=== PATIENT | male | born 1955 | race Two or more races ===

== ENCOUNTER 2019-10-01 14:21 | Outpatient (CLI) | payer OTHER ==
[~2019-10-01 14:21] MED LIST: NABUMETONE500 MG PO; PERCOCET 5/3251 TAB PO
== END 2019-10-01 14:33 | disposition home or self-care (01) ==
LOC: LAB 14:21
PROVIDERS: ATTEND Internal Medicine Hematology & Oncology
DX: D50.8 Other iron deficiency anemias (principal); I10 Essential (primary) hypertension; D55.0 Anemia due to glucose-6-phosphate dehydrogenase [G6PD] deficiency; D51.1 Vitamin B12 deficiency anemia due to selective vitamin B12 malabsorption with proteinuria; D51.0 Vitamin B12 deficiency anemia due to intrinsic factor deficiency; D63.1 Anemia in chronic kidney disease; E03.8 Other specified hypothyroidism; E06.3 Autoimmune thyroiditis; R97.0 Elevated carcinoembryonic antigen [CEA]; R97.8 Other abnormal tumor markers

== ENCOUNTER 2019-10-17 07:12 | Outpatient (CLI) | payer OTHER | END 2019-10-17 07:19 | disposition home or self-care (01) | LOC: SONOGRAMA 07:12 → MAMO-SONO 07:15 → SONOGRAMA 07:19 | PROVIDERS: ATTEND Internal Medicine Hematology & Oncology | DX: D50.8 Other iron deficiency anemias (principal); D51.3 Other dietary vitamin B12 deficiency anemia; R19.5 Other fecal abnormalities; E89.0 Postprocedural hypothyroidism; I10 Essential (primary) hypertension ==

== ENCOUNTER 2019-11-19 06:50 | Outpatient (CLI) | payer OTHER | END 2019-11-19 06:59 | disposition home or self-care (01) | LOC: LAB 06:50 | PROVIDERS: ATTEND Internal Medicine Hematology & Oncology | DX: D50.8 Other iron deficiency anemias (principal); I10 Essential (primary) hypertension; R97.0 Elevated carcinoembryonic antigen [CEA]; R97.8 Other abnormal tumor markers; D51.3 Other dietary vitamin B12 deficiency anemia; K90.89 Other intestinal malabsorption; E89.0 Postprocedural hypothyroidism; D64.89 Other specified anemias ==

== ENCOUNTER 2020-06-10 14:05 | Emergency (ER) | payer OTHER ==
[~2020-06-10] VITALS: Ht 177.8 cm; Wt 76.7 kg
[2020-06-10] MEDS ORDERED: SYNTHROID200 MCG (14:45)
[2020-06-10] MEDS ORDERED: ZESTRIL40 M1 (14:45)
[2020-06-10] MEDS ORDERED: RESTORIL15 M1 (14:46)
== END 2020-06-10 20:43 | disposition home or self-care (01) ==
LOC: ER 14:05
DX: G44.89 Other headache syndrome (principal)

== ENCOUNTER → 2021-01-06 08:59 | Outpatient (CLI) | payer OTHER ==
[~2021-01-06 08:59] MED LIST changes: +RESTORIL15 M1; +SYNTHROID200 MCG; +ZESTRIL40 M1
== END | disposition home or self-care (01) ==
LOC: LAB 08:59
PROVIDERS: ATTEND Internal Medicine Hematology & Oncology
DX: D50.8 Other iron deficiency anemias (principal); I10 Essential (primary) hypertension; R74.02 Elevation of levels of lactic acid dehydrogenase [LDH]; K76.89 Other specified diseases of liver; D51.8 Other vitamin B12 deficiency anemias; D51.1 Vitamin B12 deficiency anemia due to selective vitamin B12 malabsorption with proteinuria; D51.0 Vitamin B12 deficiency anemia due to intrinsic factor deficiency; E03.8 Other specified hypothyroidism; E06.3 Autoimmune thyroiditis; R97.0 Elevated carcinoembryonic antigen [CEA]; R97.8 Other abnormal tumor markers; R97.20 Elevated prostate specific antigen [PSA]; D51.3 Other dietary vitamin B12 deficiency anemia; K90.0 Celiac disease; K90.89 Other intestinal malabsorption; R19.5 Other fecal abnormalities; E55.9 Vitamin D deficiency, unspecified; E78.49 Other hyperlipidemia; E11.65 Type 2 diabetes mellitus with hyperglycemia

== ENCOUNTER 2021-04-17 07:18 | Outpatient (CLI) | payer OTHER | END 2021-04-17 18:00 | disposition home or self-care (01) | LOC: LAB 07:18 | PROVIDERS: ATTEND Internal Medicine Hematology & Oncology | DX: D50.8 Other iron deficiency anemias (principal); R79.89 Other specified abnormal findings of blood chemistry; I10 Essential (primary) hypertension; R74.02 Elevation of levels of lactic acid dehydrogenase [LDH]; K76.89 Other specified diseases of liver; R97.0 Elevated carcinoembryonic antigen [CEA]; R97.8 Other abnormal tumor markers; D51.3 Other dietary vitamin B12 deficiency anemia; K90.0 Celiac disease; D51.1 Vitamin B12 deficiency anemia due to selective vitamin B12 malabsorption with proteinuria; E89.0 Postprocedural hypothyroidism; K90.89 Other intestinal malabsorption; R19.5 Other fecal abnormalities ==

== ENCOUNTER 2021-04-21 09:56 | Outpatient (CLI) | payer OTHER | END 2021-04-21 10:10 | disposition home or self-care (01) | LOC: SONOGRAMA 09:56 | PROVIDERS: ATTEND Internal Medicine | DX: E04.8 Other specified nontoxic goiter (principal) ==

== ENCOUNTER 2021-08-04 07:34 | Outpatient (CLI) | payer OTHER | END 2021-08-04 07:35 | disposition home or self-care (01) | LOC: SONOGRAMA 07:34 | PROVIDERS: ATTEND Internal Medicine Gastroenterology | DX: R10.9 Unspecified abdominal pain (principal) ==

== ENCOUNTER 2021-11-04 07:13 | Outpatient (CLI) | payer OTHER | END 2021-11-04 07:17 | disposition home or self-care (01) | LOC: TOM 07:13 | PROVIDERS: ATTEND Internal Medicine Hematology & Oncology | DX: D50.8 Other iron deficiency anemias (principal); R19.7 Diarrhea, unspecified; D51.3 Other dietary vitamin B12 deficiency anemia; D51.1 Vitamin B12 deficiency anemia due to selective vitamin B12 malabsorption with proteinuria; E89.0 Postprocedural hypothyroidism; R97.8 Other abnormal tumor markers; K90.89 Other intestinal malabsorption; I10 Essential (primary) hypertension | CPT/HCPCS: 71260; 74177; Q9965 ==

== ENCOUNTER 2022-01-13 07:28 | Outpatient (CLI) | payer OTHER | END 2022-01-13 07:41 | disposition home or self-care (01) | LOC: MRI 07:28 | PROVIDERS: ATTEND Orthopaedic Surgery | DX: M54.12 Radiculopathy, cervical region (principal); M25.561 Pain in right knee; M25.562 Pain in left knee; S83.201A Bucket-handle tear of unspecified meniscus, current injury, left knee, initial encounter; M54.50 Low back pain, unspecified | CPT/HCPCS: 73718 ==

== ENCOUNTER 2022-03-08 07:53 | Outpatient (CLI) | payer OTHER | END 2022-03-08 07:58 | disposition home or self-care (01) | LOC: SONOGRAMA 07:53 | DX: M06.09 Rheumatoid arthritis without rheumatoid factor, multiple sites (principal) ==

== ENCOUNTER → 2022-03-16 | Outpatient (CLI) | payer OTHER | END | disposition home or self-care (01) | LOC: NUCLEAR 03-08 11:15 | DX: M06.09 Rheumatoid arthritis without rheumatoid factor, multiple sites (principal) | CPT/HCPCS: 78315; A9503 ==

== ENCOUNTER 2022-09-07 07:55 | Outpatient (CLI) | payer OTHER | END 2022-09-07 08:04 | disposition home or self-care (01) | LOC: TOM 07:55 | DX: I67.82 Cerebral ischemia (principal) | CPT/HCPCS: 70470; Q9965 ==

== ENCOUNTER 2022-11-21 06:56 | Outpatient (CLI) | payer OTHER | END 2022-11-21 06:58 | disposition home or self-care (01) | LOC: LAB 06:56 | PROVIDERS: ATTEND Internal Medicine Hematology & Oncology | DX: D50.8 Other iron deficiency anemias (principal); R79.9 Abnormal finding of blood chemistry, unspecified; I10 Essential (primary) hypertension; R74.02 Elevation of levels of lactic acid dehydrogenase [LDH]; K76.89 Other specified diseases of liver; D63.8 Anemia in other chronic diseases classified elsewhere; M32.9 Systemic lupus erythematosus, unspecified; M06.9 Rheumatoid arthritis, unspecified; D51.1 Vitamin B12 deficiency anemia due to selective vitamin B12 malabsorption with proteinuria; D56.8 Other thalassemias; D51.3 Other dietary vitamin B12 deficiency anemia; K90.89 Other intestinal malabsorption; E89.0 Postprocedural hypothyroidism; R97.8 Other abnormal tumor markers; R19.7 Diarrhea, unspecified ==

== ENCOUNTER 2023-01-12 11:46 | Outpatient (CLI) | payer OTHER | END 2023-01-12 11:49 | disposition home or self-care (01) | LOC: SONOGRAMA 11:46 | PROVIDERS: ATTEND Internal Medicine | DX: N20.0 Calculus of kidney (principal) ==

== ENCOUNTER 2023-05-31 10:12 | Outpatient (CLI) | payer OTHER | END 2023-05-31 10:16 | disposition home or self-care (01) | LOC: NUCLEAR 10:12 | PROVIDERS: ATTEND Internal Medicine | DX: I82.409 Acute embolism and thrombosis of unspecified deep veins of unspecified lower extremity (principal) ==